=== PATIENT | female | born 1985 | race Caucasian/White ===

== ENCOUNTER 2016-11-21 07:23 | Day surgery (SDC) | payer OTHER ==
[~2016-11-21 07:23] MED LIST: ANCEF VIAL 1 GM ONE; LR 1000 ML IV 1,000 ML IV ONE; NS 50 ML IV + SPIKE MINIBAG* 50 ML IV ONE
[2016-11-21] MEDS ORDERED: ANCEF VIAL 1 GM ONE (07:25)
[2016-11-21] MEDS ORDERED: NS 50 ML IV + SPIKE MINIBAG* 50 ML IV ONE (07:25)
[2016-11-21 07:55] LABS: BASOPHILS # (AUTO) 0.1 X10^3/uL (0.0-0.1); BASOPHILS % (AUTO) 1.1 % (0.2-1.0); EOSINOPHILS # (AUTO) 0.6 x10^3/uL (0.0-0.2); HEMATOCRIT 38.9 % (36.0-47.0); HEMOGLOBIN 13.4 g/dL (12.0-16.0); LYMPHOCYTES # (AUTO) 2.7 X10^3/uL (1.3-2.9); LYMPHOCYTES % (AUTO) 28.3 % (21.0-51.0); MEAN CORPUSCULAR HEMOGLOBIN 29.9 pg (27.0-34.0); MEAN CORPUSCULAR HGB CONC 34.3 g/dL (33.0-35.0); MEAN CORPUSCULAR VOLUME 87.1 fL (80.0-100.0); MEAN PLATELET VOLUME 7.8 fL (7.4-11.0); MONOCYTES # (AUTO) 0.7 x10^3/uL (0.3-0.8); MONOCYTES % (AUTO) 7.1 % (0.0-13.0); NEUTROPHILS # (AUTO) 5.4 x10^3/uL (2.2-4.8); NEUTROPHILS % (AUTO) 57.5 % (42.0-75.0); PLATELET COUNT 298 X10^3/uL (150.0-450.0); RED BLOOD COUNT 4.47 X10^6/uL (3.5-5.4); RED CELL DISTRIBUTION WIDTH 13.1 % (11.6-16.5); WHITE BLOOD COUNT 9.5 X10^3/uL (3.6-10.0)
[2016-11-21 08:05] LABS: ALANINE AMINOTRANSFERASE 26 Units/L (12-78); ALBUMIN 3.6 g/dL (3.4-5.0); ALKALINE PHOSPHATASE 55 Units/L (46-116); ASPARTATE AMINO TRANSFERASE 15 Units/L (15-37); BLOOD UREA NITROGEN 10 mg/dL (7-18); CALCIUM 8.7 mg/dL (8.5-10.1); CARBON DIOXIDE 26.6 mmol/L (21-32); CHLORIDE 106 mmol/L (98-107); CREATININE 0.83 mg/dL (0.55-1.02); GLUCOSE 88 mg/dL (65-99); SODIUM 143 mmol/L (136-145); TOTAL PROTEIN 7.4 g/dL (6.4-8.2); eGFR BLACK RACES > 60 (>60); eGFR NON BLACK RACES > 60 (>60)
[2016-11-21] MEDS ORDERED: FENTANYL INJ 250 mcg ONE (08:28)
[2016-11-21] MEDS ORDERED: MARCAINE 0.25% WITH EPI IJ ONE (08:37)
[2016-11-21] MEDS ORDERED: XYLOCAINE-MPF 1% ONE (08:37)
[2016-11-21] MEDS ORDERED: NS IRRIGATION 3000 ML 3,000 ML IR ONE (09:15)
[2016-11-21] MEDS ORDERED: DILAUDID INJ ONE (09:18)
[2016-11-21] MEDS ORDERED: ZOFRAN INJ 4 MG VIAL ONE (10:19)
[2016-11-21] MEDS ORDERED: SUPRANE IN ONE (10:19)
[2016-11-21] MEDS ORDERED: VERSED ONE (10:19)
[2016-11-21] MEDS ORDERED: DYLOJECT INJ ONE (10:19)
[2016-11-21] MEDS ORDERED: ROBINUL ONE (10:19)
[2016-11-21] MEDS ORDERED: XYLOCAINE 2 % (PLAIN) ONE (10:19)
[2016-11-21] MEDS ORDERED: DIPRIVAN VIAL ONE (10:19)
[2016-11-21] MEDS ORDERED: QUELICIN (OR ANECTINE) ONE (10:19)
[2016-11-21] MEDS ORDERED: NORMODYNE INJ 100 MG VIAL ONE (10:19)
[2016-11-21] MEDS ORDERED: REGLAN INJ 10 MG VIAL ONE (10:19)
[2016-11-21] MEDS ORDERED: NEOSTIGMINE INJ ONE (10:19)
[2016-11-21] MEDS ORDERED: NORCURON INJ 10 MG VIAL ONE (10:19)
[2016-11-21] MEDS: DILAUDID INJ IVP PRN ×2 (10:31→10:40)
[2016-11-21] MEDS ORDERED: BENADRYL INJ 50 MG VIAL IVP PRN (10:31)
[2016-11-21] MEDS ORDERED: PHENERGAN INJ 25 MG IVP PRN (10:31)
[2016-11-21] MEDS ORDERED: REGLAN INJ 10 MG VIAL IVP PRN (10:31)
[2016-11-21] MEDS ORDERED: ZOFRAN INJ 4 MG VIAL IVP PRN (10:31)
[2016-11-21] MEDS ORDERED: ZOFRAN INJ 4 MG VIAL IVP ONE (10:35)
[2016-11-21 12:11] VITALS: BP 134/74
== END 2016-11-21 12:20 | disposition home or self-care (01) ==
LOC: SURG1 07:23
PROVIDERS: ATTEND Student in an Organized Health Care Education/Training Program
PROC: 0FB14ZX Excision of Right Lobe Liver, Percutaneous Endoscopic Approach, Diagnostic (ICD-10-PCS; 2016-11-21)
PROC: 0FT44ZZ Resection of Gallbladder, Percutaneous Endoscopic Approach (ICD-10-PCS; principal; 2016-11-21 08:30)
DX: K81.1 Chronic cholecystitis (principal); R16.0 Hepatomegaly, not elsewhere classified; K76.0 Fatty (change of) liver, not elsewhere classified
CPT/HCPCS: 36415; 80053; 85025; A4216; A4222; S0020; J0330; J0690; J1170; J2001; J2250; J2405; J2710; J2765; J3010; J3490; J7120